=== PATIENT | female | born 1970 | race Caucasian/White ===

== ENCOUNTER 2022-03-29 10:44 | Emergency (ER) | payer OTHER, SELFPAY ==
--- NOTE | ~2022-03-29 | XR_ITS ---
XR hand RT min 3V 03/29/2022 11:46 INDICATION: Right hand pain after fall PROCEDURE: 3 views right hand COMPARISON: No prior studies for comparison. FINDINGS: Fracture, dislocation or subluxation is not identified. The soft tissues appear within norm al limits. No foreign bodies are identified. IMPRESSION: 1: NO ACUTE BONE OR JOINT ABNORMALITY IDENTIFIED. Reviewed, dictated and finalized at location B.
--- NOTE | ~2022-03-29 | XR_ITS ---
XR knee LT min 4V 03/29/2022 11:45 Indication: Left knee pain Procedure: 4 views left knee Comparison: No prior studies for comparison. Findings: No fracture, subluxation or dislocation. There is prepatellar soft tissue swelling. No sign ificant joint effusion. No foreign body Impression: 1: Moderate prepatellar soft tissue swelling. Reviewed, dictated and finalized at location B. Impression: 1: Moderate prepatellar soft tissue swelling.
--- NOTE | ~2022-03-29 | XR_ITS ---
XR femur RT min 2V 03/29/2022 11:45 Indication: Right leg pain Procedure: 2 views right femur Comparison: No prior studies for comparison. Findings: No fracture, subluxation or dislocation. There is osteitis pubis. No focal soft tissue abno rmality. No foreign bodies. Impression: 1: No acute fracture. Reviewed, dictated and finalized at location B. Impression: 1: No acute fracture.
--- NOTE | ~2022-03-29 | XR_ITS ---
XR tibia fibula RT 2V 03/29/2022 11:46 INDICATION: Right leg pain PROCEDURE: 2 views right tibia/fibula COMPARISON: No prior studies for comparison. FINDINGS: Fracture, dislocation or subluxation is not identified. The soft tissues appear within norm al limits. No foreign bodies are identified. IMPRESSION: 1: NO ACUTE BONE OR JOINT ABNORMALITY IDENTIFIED. Reviewed, dictated and finalized at location B.
--- NOTE | ~2022-03-29 | CT_ITS ---
EXAMINATION: CT brain wo con DATE: 03/29/2022 11:17 INDICATION: Head injury. TECHNIQUE: Computed tomography (CT) of the head was performed without intravenous contrast. The mA wa s adjusted according to patient size. Iterative reconstruction technique was employed. The dose-lengt h product was 605.33 mGy-cm. COMPARISON: Head CT 02/11/2018, brain MRI 02/11/2018 FINDINGS: There are scattered areas of low attenuation in the cerebral white matter. There is no intr acranial hemorrhage, acute infarction, or abnormal intracranial mass lesion. There is an old lacunar infarct in the hoda. The ventricles are normal in size. The mastoid air cells are normal. There is mu cosal thickening in right maxillary sinus. The orbits are normal. IMPRESSION: 1. Old lacunar infarct in the hoda. 2. Stable mild nonspecific cerebral white matter disease, which likely represents chronic small vesse l ischemic disease. Reviewed, dictated and finalized at location A. IMPRESSION: 1. Old lacunar infarct in the hoda. 2. Stable mild nonspecific cerebral white matter disease, which likely represen ts chronic small vessel ischemic disease.
[2022-03-29 10:55] VITALS: BP 153/86; PULSE 79; RESP 19; TEMP 36.1; O2SAT 98
--- NOTE | 2022-03-29 11:34 | ED.FALL ---
HPI - Fall General Chief Complaint: Fall Stated Complaint: fall, blood thinners Time Seen by Provider: 03/29/22 10:59 Source: patient, RN notes reviewed and old records reviewed Mode of arrival: ambulatory Limitations: no limitations History of Present Illness HPI Narrative: This is a 51 year old female with history of CAD, stent on antiplatelets who presents for evaluation of head injury s/p fall. Patient states she was running after her granddaughter. She slipped and she fell onto her side. She hit right side of her head but denies LOC. She has abrasion to right hand, and she has bruising and pain to left knee and right leg. She denies rib pain or shortness of breath. she also denies neck pain. She takes Brilinta and aspirin. Related Data Home Medications Medication Instructions Recorded Confirmed amlodipine 5 mg tablet tablet 03/29/22 aspirin 81 mg capsule 81 mg PO DAILY 03/29/22 03/29/22 carvedilol 25 mg tablet tablet 03/29/22 lisinopril 5 mg tablet tablet 03/29/22 rosuvastatin 20 mg tablet tablet 03/29/22 spironolactone 25 mg tablet tablet 03/29/22 ticagrelor 60 mg tablet (Brilinta) tablet 03/29/22 Allergies Allergy/AdvReac Type Severity Reaction Status Date / Time No Known Allergies Allergy Mild Unverified 03/29/22 10:59 Review of Systems Review of Systems: All systems reviewed & are unremarkable except as noted in HPI and below Constitutional: Constitutional: Denies chills and Denies fatigue Eyes: Eyes: Denies change in vision Cardiovascular: Cardiovascular: Denies chest pain and Denies rapid heart rate Respiratory: Respiratory: Denies chest congestion Gastrointestinal: Gastrointestinal: Denies abdominal pain and Denies bloating Musculoskeletal: Musculoskeletal: Denies back pain and Reports arthralgias Neurologic: Denies dizziness, Denies headache(s) and Denies focal weakness [facility] Past Medical History Medical History (Updated 03/29/22 @ 13:27 by Magalie Knox MD) Coronary artery disease Hypertension Surgical History Surgical History (Updated 03/29/22 @ 11:41 by Magalie Knox MD) History of coronary artery stent placement Hx of cholecystectomy Social History Social History (Updated 03/29/22 @ 11:41 by Maglaie Knox MD) Smoking status: Never smoker Exam Const: General: healthy appearing and no acute distress Nutritional Appearance: well nourished Orientation/consciousness: patient oriented x3 HENMT: Head: hematoma right parietal Ears: external ears normal and TM's normal bilaterally Face and sinus: normal facial exam Eyes: Conjunctivae: conjunctivae normal Pupils: Equal, round and reactive pupils present EOM: EOMs intact bilaterally Neck: Neck: normal visual inspection Chest: Chest palpation & inspection: normal inspection of the chest Resp: Effort & Inspection: normal respiratory effort Auscultation: clear to auscultation bilaterally Cardio: Rate: regular rate Rhythm: regular rhythm Heart sounds: no murmurs GI: GI Palp: Yes Soft to palpation, No Tenderness to palpation present (GI), No Guarding due to palpation present (GI) and No Rigid due to palpation Auscultation: normal bowel sounds Back/Spine/Pelvis: Back: no CVA tenderness Skin: Other: small abrasion at right 3rd mcp hand; left knee anterior bruising, and bruising to right lower leg Neuro: General: patient oriented x3 and moves all extremities Extrem: Other: see skin, FROM Psych: Mental Status: mental status grossly normal Course Reevaluation(s) Reevaluation #1: I Discussed with patient that no acute injury has been found. I Discussed treatment for her contusions to her legs. Patient is reporting right shoulder soreness but she does not want xray of her shoulder. Date: 03/29/22 Time: 13:22 Vital Signs Vital signs: Vital Signs Temperature 97.0 F L 03/29/22 10:55 Pulse Rate 79 03/29/22 10:55 Respiratory Rate 19 03/29/22 10:55 Blood Pressure 153/
[2022-03-29] MEDS: TETANUS,DIPHTHERIA,AC PERTUSSIS ADULT (0.5 ML) BOOSTRIX IM (11:52)
[2022-03-29 12:06] VITALS: BP 121/74; PULSE 70; RESP 12; O2SAT 99
[2022-03-29 13:30] VITALS: BP 116/73; PULSE 69; RESP 16; O2SAT 100
== END 2022-03-29 13:41 | disposition home or self-care (01) ==
PROVIDERS: Emergency Provider General Practice
DX: S00.03XA Contusion of scalp, initial encounter (principal); S60.511A Abrasion of right hand, initial encounter; S80.02XA Contusion of left knee, initial encounter; S80.11XA Contusion of right lower leg, initial encounter; I25.10 Atherosclerotic heart disease of native coronary artery without angina pectoris; I10 Essential (primary) hypertension; Z95.5 Presence of coronary angioplasty implant and graft; Z79.02 Long term (current) use of antithrombotics/antiplatelets; Z79.82 Long term (current) use of aspirin; R90.82 White matter disease, unspecified; W01.0XXA Fall on same level from slipping, tripping and stumbling without subsequent striking against object, initial encounter
CPT/HCPCS: 70450; 73130; 73552; 73564; 73590; 90471; 90715; 99284